=== PATIENT | male | born 1990 | race African-American/Black ===

== ENCOUNTER 2022-05-17 00:55 | Emergency (ER) | payer BC ==
[2022-05-17] MEDS ORDERED: Lidocaine 1% MPF 2 ML VIAL ONE (01:35)
[2022-05-17] MEDS ORDERED: Bupivacaine 0.25% 10 ML VIAL ONE (01:37)
== END 2022-05-17 02:01 | disposition home or self-care (01) ==
LOC: ERS 00:55
DX: K08.89 Other specified disorders of teeth and supporting structures (principal)
CPT/HCPCS: 64400; S0020